=== PATIENT | female | born 1950 | race Caucasian/White ===

== ENCOUNTER → 2016-12-12 | Outpatient (CLI) | payer OTHER ==
[2015-03-12 10:31] VITALS: BP 110/70
--- NOTE | 2016-12-12 17:04 | MG ---
Examination: Bilateral diagnostic mammogram. Clinical history: Left breast pain with brownish left nipple discharge. Technique: Multiple digital images of both breasts were obtained. Comparison: 01/15/2016, 12/07/2014. Findings: The breasts are heterogeneously dense, reducing the sensitivity of mammography. Benign-appearing calc ifications are noted in the breasts bilaterally. A biopsy marking clip is present in the right breast . Skin moles are seen overlying both breasts. Mild ductal ectasia is suspected in the retroareolar region of the left breast. No additional mammogr aphic abnormality is evident in the retroareolar region of the left breast. A targeted left breast ul trasound evaluating the retroareolar region of the left breast is recommended for further evaluation. An order for this examination could not be obtained at the time of the examination. No suspicious mass, area of architectural distortion or suspicious cluster of microcalcifications is noted in the right breast. Impression: 1. Probable ductal ectasia in the retroareolar region of the left breast. Given the history of a brow angely nipple discharge, a targeted ultrasound of the retroareolar region of the left breast is recomme nded. BI-RADS category 0 (ZERO) - ASSESSMENT INCOMPLETE; ADDITIONAL IMAGING IS NEEDED. Recommend a targeted left breast ultrasound evaluating the retroareolar region of the left breast. Diagnostic CAD was utilized and reviewed. * 0 (ZERO) - ASSESSMENT INCOMPLETE; ADDITIONAL IMAGING IS NEEDED. * 0C - ASSESSMENT INCOMPLETE, NEEDS ADDITIONAL IMAGING EVALUATION AND/OR PRIOR MAMMOGRAMS FOR COMPARI SON. * 1/1 (ONE) - NEGATIVE. * 2/II (TWO) - BENIGN FINDINGS. * 3/III (THREE) - PROBABLY BENIGN FINDING; SHORT INTERVAL FOLLOW-UP SUGGESTED. * 4/IV (FOUR) - SUSPICIOUS ABNORMALITY; BIOPSY SHOULD BE CONSIDERED. * 5/V - HIGHLY SUSPICIOUS OF MALIGNANCY; BIOPSY SHOULD BE PERFORMED. * 6/ - KNOWN BIOPSY PROVEN MALIGNANCY-APPROPRIATE ACTION SHOULD BE TAKEN. A NEGATIVE X-RAY REPORT SHOULD NOT DELAY BIOPSY IF A DOMINANT OR CLINICALLY SUSPICIOUS MASS IS PRESENT; 4 TO 8 PERCENT OF CANCERS ARE NOT IDENTIFIED BY X-RAY. A NEGATIVE REPORT MAY REINFORCE THE CLINICAL IMPRESSION. ADENOSIS AND DENSE BREASTS MAY OBSCURE AN UNDERLYING NEOPLASM. Reported By:
== END ==
LOC: RAD 14:02
PROVIDERS: ATTEND Family Medicine
DX: Z12.31 Encounter for screening mammogram for malignant neoplasm of breast (principal); N64.52 Nipple discharge
CPT/HCPCS: 77066

== ENCOUNTER → 2016-12-19 | Outpatient (CLI) | payer OTHER ==
[2015-03-12 10:31] VITALS: BP 110/70
--- NOTE | 2016-12-19 14:08 | US ---
HISTORY: Spontaneous brownish left nipple discharge and subareolar pain; patient is unable to expres s discharge at this time Study: Left breast ultrasound Comparison: December 12, 2016 Technique: Multiple grayscale and color Doppler images of the left breast were obtained. Findings: Targeted sonographic evaluation of the subareolar left breast demonstrates ductal ectasia with scatte red internal debris but no suspicious filling defects. No suspicious cystic or solid nodules are iden tified. IMPRESSION: Subareolar left breast ductal ectasia. No findings to suggest malignancy. BI-RADS 2. Benign findings. Return to yearly mammographic screening. If the patient were to develop unilateral bloody nipple disc harge in the interim which is expressible from a single duct, galactography versus bilateral breast M RI without and with contrast would be recommended. * 0 (ZERO) - ASSESSMENT INCOMPLETE; ADDITIONAL IMAGING IS NEEDED. * 1/1 (ONE) - NEGATIVE. * 2/II (TWO) - BENIGN FINDINGS. * 3/III (THREE) - PROBABLY BENIGN FINDING; SHORT INTERVAL FOLLOW-UP SUGGESTED. * 4/IV (FOUR) - SUSPICIOUS ABNORMALITY; BIOPSY SHOULD BE CONSIDERED. * 5/V (FIVE) - HIGHLY SUSPICIOUS OF MALIGNANCY; BIOPSY SHOULD BE PERFORMED. * 6/ (SIX) - KNOWN MALIGNANCY. A NEGATIVE X-RAY REPORT SHOULD NOT DELAY BIOPSY IF A DOMINANT OR CLINICALLY SUSPICIOUS MASS IS PRESENT; 4 TO 8 PERCENT OF CANCERS ARE NOT IDENTIFIED BY X-RAY. A NEGA TIVE REPORT MAY REINFORCE THE CLINICAL IMPRESSION. ADENOSIS AND DENSE BREASTS MAY OBSCURE AN UNDERLY ING NEOPLASM. Reported By:
== END | disposition home or self-care (01) | DRG 601 ==
LOC: RAD 13:00
PROVIDERS: ATTEND Family Medicine
DX: N64.52 Nipple discharge (principal); N64.4 Mastodynia; N60.42 Mammary duct ectasia of left breast
CPT/HCPCS: 76642